=== PATIENT | male | born 1930 | race Caucasian/White ===

== ENCOUNTER 2016-07-26 12:49 | Inpatient (IN) | payer OTHER, MEDICARE ==
[~2016-07-26] VITALS: Ht 177.8 cm; Wt 67.9 kg
[2016-07-27] MEDS ORDERED: PANT40TA3 PO (10:19)
[2016-07-27] MEDS ORDERED: TYLE325T PO (10:19)
[2016-07-27] MEDS ORDERED: LOVA40TA PO (10:19)
[2016-07-27] MEDS ORDERED: VITA400C2 PO (10:19)
[2016-07-27] MEDS ORDERED: ENAL10TA7 PO (10:19)
[2016-07-27] MEDS ORDERED: LANTUS2P SQ (10:19)
[2016-07-27] MEDS ORDERED: VITA1000 PO (10:19)
[2016-07-27] MEDS ORDERED: ASCO500C PO (10:19)
[2016-07-31] MEDS ORDERED: ceFAZolin 2 GM PREMIX 50 ML IV SCH (05:45)
[2016-07-31] MEDS ORDERED: CHLORHEXIDINE GLUCONATE 4% SOLN 120 ML BTL TOP SCH (05:45)
[2016-07-31] MEDS ORDERED: POVIDONE IODINE 7.5% SCRUB 118 ML BOTTLE TOP SCH (05:45)
[2016-07-31] MEDS ORDERED: VANCOMYCIN 1000 MG/NS 250 ML (for <70 kg) IV SCH ×2 (05:45)
[2016-07-31 05:50] VITALS: BP 169/69; PULSE 63; RESP 20; TEMP 98; O2SAT 100
[2016-07-31] MEDS ORDERED: LACTATED RINGER'S 1000 ML IV SCH (06:00)
[2016-07-31] MEDS ORDERED: INSULIN HUMAN REGULAR 1,000 UNITS/10 ML VIAL SQ PRN (06:00)
[2016-07-31] MEDS ORDERED: METOPROLOL TARTRATE 25 MG TAB PO PRN (06:00)
[2016-07-31] MEDS ORDERED: SODIUM CHLORID 0.9% 500 ML IV SCH (06:00)
[2016-07-31] MEDS ORDERED: GENTAMICIN SULFATE 80 MG/2 ML VIAL ONE (06:09)
[2016-07-31] MEDS ORDERED: MIDAZOLAM HCL 2 MG/2 ML VIAL ONE ×2 (06:52→09:20)
[2016-07-31] MEDS ORDERED: FAMOTIDINE 20 MG/2 ML VIAL ONE (06:53)
[2016-07-31] MEDS ORDERED: TRANEXAMIC PERI-ARTICULAR 3,000 MG/NS 100 ML P-ARTICULR SCH ×2 (07:00)
[2016-07-31] MEDS ORDERED: EXPAREL PERI-ARTICULAR INJECTION (TOTAL VOL. 60 ML) P-ARTICULR SCH ×2 (07:00)
[2016-07-31] MEDS ORDERED: TRANEXAMIC ACID IV SCH (07:00)
[2016-07-31] MEDS ORDERED: SODIUM CHLORIDE 0.9% IV SCH (07:00)
[2016-07-31] MEDS ORDERED: HYDR-3288 PO (07:18)
[2016-07-31] MEDS ORDERED: ENOX40P SQ (07:19)
[2016-07-31] MEDS ORDERED: MORPHINE SULFATE 4 MG/ML INJ IV PUSH PRN (07:30)
[2016-07-31] MEDS ORDERED: NALOXONE HCL 0.4 MG/ML AMP IV PRN (07:30)
[2016-07-31] MEDS ORDERED: Post-op Orders (for Pharmacy) MISC XX ONE (07:30)
[2016-07-31] MEDS ORDERED: ZOLPIDEM TARTRATE 5 MG TAB PO PRN (07:30)
[2016-07-31] MEDS ORDERED: MAGNESIUM HYDROXIDE SUSP 30 ML CUP PO PRN (07:30)
[2016-07-31] MEDS ORDERED: SODIUM CHLORIDE 0.9% FLUSH 5 ML FLUSH IVF PRN (07:30)
[2016-07-31] MEDS ORDERED: ALUMINUM/MAGNESIUM/SIMETH 30 ML CUP PO PRN (07:30)
[2016-07-31] MEDS ORDERED: ACETAMINOPHEN/HYDROcodone 325 MG/10 MG TAB PO PRN (07:30)
[2016-07-31] MEDS ORDERED: BISACODYL 10 MG SUPP PR PRN (07:30)
[2016-07-31] MEDS ORDERED: ONDANSETRON HCL 4 MG/2 ML VIAL IVP PRN (07:30)
[2016-07-31] MEDS ORDERED: diphenhydrAMINE HCL 50 MG/ML VIAL IV PRN (07:30)
[2016-07-31] MEDS: SODIUM CHLORIDE 0.9% FLUSH 5 ML FLUSH IVF SCH ×2 (09:00→22:00)
[2016-07-31] MEDS ORDERED: ENALAPRIL HYDROCHLOROTHIAZIDE PO SCH (09:00)
[2016-07-31] MEDS ORDERED: DO NOT ADM ANY ANTICOAGULANT DRUGS XX PRN (09:15)
--- NOTE | 2016-07-31 09:22 | RADRPT ---
EXAM DATE/TIME: 07/31/2016 07:29 [facility] COMPARISON: No previous studies available for comparison. INDICATIONS : Open reduction internal fixation of the right hip. MEDICAL HISTORY : None. SURGICAL HISTORY : None. ENCOUNTER: Initial ACUITY: 1 day PAIN SCORE: Non-responsive. LOCATION: Right Hip. FINDINGS: The patient is status post a total hip arthroplasty with a bipolar prosthesis. Prosthesis is [place]. Alignment is anatomic. A fracture is not appreciated. CONCLUSION: Anatomic alignment. Albert Saini MD FACR Board Certified Radiologist. This report was verified electronically.
--- NOTE | 2016-07-31 09:45 | MP ---
cc: PARESH JEROME M.D. 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 PROCEDURE Right total hip arthroplasty. SURGEON Dr. Paresh Jerome SCALE AND SKIP CAR OPERATOR Reuben Iraheta PA-C ANESTHESIA General. REVIEW OF SYSTEMS 200 cc. COMPLICATIONS None. IMPLANTS USED DePuy Corail size 14 Press-Fit high offset femoral stem, size 56 solid [place] Gription, cup size 36-mm neutral highly cross-linked polyethylene liner, size 36-mm ceramic head, +5 neck. JUSTIFICATION This patient is an 86-year-old male history of right hip progressive pain. He has been followed by us at the [facility]. He has severe pain with standing, walking, ambulation with weightbearing activities. It interferes with activities of daily living. He has failed nonoperative treatment modalities including medications, therapy, ambulatory assistive aids, injections, home exercise program. The patient is not overweight. X-rays of the right hip reveal severe end-stage osteoarthritis with near [id number] joint space narrowing, subchondral sclerosis, subchondral cysts, osteophyte formation and associated subluxation. 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 The patient was counseled as to the risks, benefits and alternatives to a total hip arthroplasty. The risks were discussed which include but are not limited to anesthesia, bleeding, infection, damage to nerves, blood vessels, pain, stiffness, fracture dislocation, leg length discrepancies, blood clots, pulmonary embolism and even . The patient's pain was severe. He favored the benefits over the risks and did wish to proceed with surgery. PROCEDURE IN DETAIL Written consent was obtained. The patient was identified, taken to the operating room, placed supine on the operating room table. General anesthesia was administered as well as 2 grams of IV Ancef and 1 gram of IV vancomycin. The patient left and right feet were placed in the padded traction boots on the [place] table. The right hip and right lower extremity were prepped and draped using isopropyl alcohol, Hibiclens solution and Chloraprep solution. After an appropriate time-out was performed, a longitudinal incision was made over the anterolateral aspect of the right hip. The fascial layer was incised. Dissection was carried over tensor fascia kevyn, underneath the rectus femoris to allow exposure to the anterior hip capsule. A capsulotomy incision was performed. An oscillating saw was used to perform a femoral neck cut. The femoral head and neck component was removed; this was passed off the table and sent to Pathology. A 10-blade scalpel was used to excise the labrum. Sequential reaming of the acetabulum began at size 51, was carried through to size 56. Subsequently, a solid [place]reekside size 45 Gription cup was impacted in approximately 45 degrees of abduction and 10 degrees of anteversion. There was good purchase and fixation. After insertion of the cup, a screw hole eliminator was placed, followed by the neutral liner. The liner was impacted in place and tested for stability. Attention was then turned to the femur where the leg was externally rotated, extended to the ground and adducted. The capsule was released off the inner surface of the greater trochanter to allow for elevation and lateralization of the femur. A box-cutting osteotome was used to gain entrance into the intramedullary canal of the femur. This was followed by canal finder and sequential broaching up to size 14. Trial head and neck combinations were evaluated and the final components implanted in place with the size 14, high offset femoral stem, 36 ceramic head, +5 neck. The leg could achieve full extension of 80 degrees and extension all the way down to the ground without evidence of anterior instability or impingement. Clinically and upon fluoroscopic imaging, the components appeared appropriately aligned. The surgical wound was thoroughly irrigated with sterile saline pulse lavage and antibiotic-impregnated solution. The capsule was closed with #2 FiberWire suture. The fascial layer was closed with #1 Vicryl suture, the subcutaneous layer with 2-0 Vicryl suture. The skin was closed with Dermabond. Sterile dressings were applied. The patient tolerated the procedure well with no intraoperative complications noted. Reuben Iraheta, physician temporary administrative assistant certified, was present during the entire procedure to include patient positioning and the procedure itself. The medical necessity of a physician temporary administrative assistant was indicated in this case due to the complexity of the procedure itself. He assisted with appropriate manipulation of the leg and also retraction of muscle, tendon, bone and neurovascular structures. He assisted also with preparation of bone and also implantation of the prosthetic replacement. MD PRICILLA Gupta/RENNY /8:53 AM /9:04 AM
[2016-07-31] MEDS ORDERED: *morphine SULFATE 8 MG/ML PERIprocedure ONLY ONE (09:54)
[2016-07-31] MEDS: SODIUM CHLOR 0.9% 1000 ML INJ 1,000 ML IV SCH ×2 (10:00→18:00)
--- NOTE | 2016-07-31 10:27 | RADRPT ---
EXAM DATE/TIME: 07/31/2016 09:30 [facility] COMPARISON: No previous studies available for comparison. INDICATIONS: Post right hip surgery MEDICAL HISTORY: None. SURGICAL HISTORY: None. ENCOUNTER: Initial ACUITY: 1 day PAIN SCORE: 0/10 LOCATION: Right hip FINDINGS: The patient is status post right hip replacement with prosthesis is good position. There is no acute fracture or dislocation. Mild degenerative changes are noted involving the left hip joint. Mild de generative changes and scoliosis of the lumbar spine are noted. CONCLUSION: 1. Mild degenerative changes involving the left hip joint. 2. Mild degenerative changes and scoliosis of the lower lumbar spine. 3. Status post right hip replacement with prosthesis is good position. Yunior Griffin MD on July 31, 2016 at 10:19 Board Certified Radiologist. This report was verified electronically.
[2016-07-31] MEDS ORDERED: PROPOFOL 200 MG/20 ML AMP IV ONE (12:00)
[2016-07-31] MEDS ORDERED: LACTATED RINGER'S 1000 ML INJ 1,000 ML IV ONE (12:00)
[2016-07-31] MEDS ORDERED: ONDANSETRON HCL 4 MG/2 ML VIAL IV PUSH ONE (12:00)
[2016-07-31] MEDS ORDERED: PHENYLEPH/NS 1000 MCG/10 ML SYR IV ONE (12:00)
[2016-07-31] MEDS ORDERED: ePHEDrine/NS 50 MG/5 ML SYR IV ONE (12:00)
[2016-07-31] MEDS: PANTOPRAZOLE SOD 40 MG DELAYED RELEASE TAB PO SCH (14:00)
[2016-07-31] MEDS: CHOLECALCIFEROL (VIT D3) 1000 UNIT TAB PO SCH (14:00)
[2016-07-31] MEDS: ENALAPRIL MALEATE 10 MG TAB PO SCH (14:00)
[2016-07-31] MEDS: ASCORBIC ACID 500 MG TAB PO SCH (14:00)
[2016-07-31] MEDS: HYDROCHLOROTHIAZIDE 25 MG TAB PO SCH (14:00)
[2016-07-31] MEDS: VITAMIN E 400 UNIT CAP PO SCH (14:00)
--- NOTE | 2016-07-31 16:14 | PD.CONS ---
HPI Service [facility] Hospitalists Consult Requested By Dr. 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 The patient reports that he has been having progressive pain in the right hip. He failed conservative measures and therefore was admitted to the hospital for hip replacement. Hospitalist service was consulted for medical management. Regarding his diabetes. He reports that has been controlled with Lantus 12 units daily at bedtime. His blood pressure has been controlled with enalapril and hydrochlorothiazide. He denies episodes of chest pain or shortness of breath. Patient is seen in PACU. He is currently comfortable. Pain is controlled. Review of Systems Other Constitutional: DENIES: Fever, Chills Endocrine: DENIES: Polyuria Eyes: DENIES: Blurred vision Ears, nose, mouth, throat: DENIES: Oral lesions Respiratory: DENIES: Cough, Shortness of breath Cardiovascular: DENIES: Chest pain Gastrointestinal: DENIES: Nausea, Vomiting Genitourinary: DENIES: Dysuria Musculoskeletal: COMPLAINS OF: Joint pain Integumentary: DENIES: Rash Neurologic: DENIES: Headache Psychiatric: DENIES: Mood changes Past Family Social History Allergies: Coded Allergies: No Known Allergies (Unverified , 07/31/16) Past Medical History Hypertension Pancreatic mass status post Whipple Diabetes Hyperlipidemia Peptic ulcer disease Past Surgical History Right hip replacement 07/31/16 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 Appendectomy Reported Medications Reported Meds & Active Scripts Active Lovenox Inj (Enoxaparin Sodium) 40 Mg/0.4 Ml Syr 40 Mg SQ DAILY [place] (Hydrocodone-Acetaminophen) 7.5-325 mg Tab 1-2 Tab PO Q6H PRN Reported Vitamin C (Ascorbic Acid) 500 Mg Cap 500 Mg PO DAILY D 1000 (Cholecalciferol) 1,000 Unit Tab 1,000 Units PO DAILY Enalapril-Hydrochorothiazide (Enalapril-Hydrochlorothiazide) 10-25 Mg Tab 10-25 Mg PO DAILY Lantus Inj (Insulin Glargine) 1,000 Unit/10 Ml Vial 12 Units SQ HS Lovastatin 40 Mg Tab 40 Mg PO HS Pantoprazole (Pantoprazole Sodium) 40 Mg Tab 40 Mg PO DAILY Vitamin E 400 Unit Cap 400 Units PO DAILY Family History Father from complication of renal failure and strokes. Social History The patient denies using tobacco or alcohol. Physical Exam Vital Signs Vital Signs Date Time Temp Pulse Resp B/P Pulse Ox O2 Delivery O2 Flow Rate FiO2 07/31/16 13:50 15 07/31/16 10:30 97.5 67 15 130/62 95 Nasal Cannula 2 07/31/16 10:15 68 15 128/60 99 Nasal Cannula 3 07/31/16 10:00 68 14 126/58 98 Nasal Cannula 3 07/31/16 09:59 15 07/31/16 09:45 70 14 127/59 97 Nasal Cannula 3 07/31/16 09:30 71 13 129/62 94 Nasal Cannula 3 07/31/16 09:15 97.6 76 9 126/65 99 Simple Mask 8 07/31/16 05:50 98.0 63 20 169/69 100 Physical Exam GENERAL: Elderly male in no apparent distress. SKIN: No rashes, ecchymoses or lesions. Cool and dry. HEAD: Atraumatic. Normocephalic. No temporal or scalp tenderness. EYES: Pupils equal round and reactive. Extraocular motions intact. No scleral icterus. No injection or drainage. ENT: Nose without bleeding, purulent drainage or septal hematoma. Throat without erythema, tonsillar hypertrophy or exudate. Uvula midline. Airway patent. NECK: Trachea midline. No JVD or lymphadenopathy. Supple, nontender, no meningeal signs. CARDIOVASCULAR: Regular rate and rhythm without murmurs, gallops, or rubs. RESPIRATORY: Clear to auscultation. Breath sounds equal bilaterally. No wheezes , rales, or rhonchi. GASTROINTESTINAL: Abdomen soft, non-tender, nondistended. No hepato-splenomegaly , or palpable masses. No guarding. MUSCULOSKELETAL: Right hip postop. Dressing is clean and dry. Neurovascularly intact distally NEUROLOGICAL: Awake and alert. Cranial nerves II through XII intact. Motor and sensory grossly within normal limits. Five out of 5 muscle strength in all muscle groups. Normal speech. Laboratory Laboratory Tests Test 07/31/16 06:10 Blood Type B POSITIVE Antibody Screen NEGATIVE Imaging Last Impressions Hip and Pelvis X-Ray 07/31/16 0000 Signed Impressions: Service Date/Time: Sunday, July 31, 2016 09:30 - CONCLUSION: 1. Mild degenerative changes involving the left hip joint. 2. Mild degenerative changes and scoliosis of the lower lumbar spine. 3. Status post right hip replacement with prosthesis is good position. Yunior Griffin MD Hip X-Ray 07/31/16 0000 Signed Impressions: Service Date/Time: Sunday, July 31, 2016 07:29 - CONCLUSION: Anatomic alignment. Albert Saini MD Assessment and Plan Problem List: (1) Primary localized osteoarthrosis, pelvic region and thigh ICD Code: M16.10 Status: Acute (2) Hypertension ICD Code: I10 Status: Acute (3) Diabetes ICD Code: E11.9 Status: Acute Assessment and Plan 86-year-old male with: Right hip osteoarthritis and right hip cystic mass: Patient is status post right hip replacement. - Routine postop care per orthopedics. - Pain control. Bowel regimen - DVT prophylaxis per orthopedics. 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 Hypertension: Continue home medications Hyperlipidemia: Continue statin GERD: Continue PPI GI prophylaxis: PPI. Stool softener PRN constipation. DVT PPx: Lovenox to be started tomorrow per orthopedics. Randall Jessica MD Jul 31, 2016 16:14
[2016-07-31] MEDS ORDERED: DEXTROSE 50% IN WATER 50 ML VIAL(D50) IV PUSH PRN (16:15)
[2016-07-31] MEDS ORDERED: GLUCAGON 1 MG/ML VIAL OTHER PRN (16:15)
[2016-07-31 16:20] VITALS: BP 151/67; PULSE 78; RESP 18; TEMP 96.8; O2SAT 100
[2016-07-31] MEDS: ACETAMINOPHEN/HYDROcodone 325 MG/10 MG TAB PO PRN (17:06)
[2016-07-31 20:00] VITALS: BP 115/60; PULSE 75; RESP 18; TEMP 97.1; O2SAT 98
[2016-07-31] MEDS: INSULIN ASPART SUPPLEMENTAL SCALE SQ SCH (21:59)
[2016-07-31] MEDS: INSULIN DETEMIR 100 UNITS/ML VIAL SQ SCH (21:59)
[2016-08-01] VITALS (7 sets, daily range): BP systolic 112–146; BP diastolic 52–67; PULSE 72–84; RESP 16–18; TEMP 96.8–100.8; O2SAT 94–97
[2016-08-01] MEDS: SODIUM CHLOR 0.9% 1000 ML INJ 1,000 ML IV SCH (04:00)
[2016-08-01] MEDS: ACETAMINOPHEN/HYDROcodone 325 MG/10 MG TAB PO PRN ×3 (05:10→13:35)
[2016-08-01 06:09] LABS: MEAN CELL VOLUME 89.2 FL (80.0-100.0); MEAN CORPUSCULAR HEMOGLOBIN 29.4 PG (27.0-34.0); PLATELET COUNT 139 TH/MM3 (150-450); RED BLOOD COUNT 3.47 MIL/MM3 (4.50-5.90); RED CELL DISTRIBUTION WIDTH 14.4 % (11.6-17.2); REVIEW FLAG FINAL; WHITE BLOOD COUNT 8.8 TH/MM3 (4.0-11.0)
[2016-08-01 06:29] LABS: BICARBONATE 28.1 MEQ/L (21.0-32.0); POTASSIUM 4.4 MEQ/L (3.5-5.1)
[2016-08-01] MEDS: INSULIN ASPART SUPPLEMENTAL SCALE SQ SCH ×4 (06:40→23:18)
[2016-08-01] MEDS: PANTOPRAZOLE SOD 40 MG DELAYED RELEASE TAB PO SCH (08:44)
[2016-08-01] MEDS: VITAMIN E 400 UNIT CAP PO SCH (08:44)
[2016-08-01] MEDS: HYDROCHLOROTHIAZIDE 25 MG TAB PO SCH (08:44)
[2016-08-01] MEDS: ENOXAPARIN SODIUM 40 MG/0.4 ML SYRINGE SQ SCH (08:46)
[2016-08-01] MEDS: ENALAPRIL MALEATE 10 MG TAB PO SCH (08:46)
[2016-08-01] MEDS: ASCORBIC ACID 500 MG TAB PO SCH (08:47)
[2016-08-01] MEDS: CHOLECALCIFEROL (VIT D3) 1000 UNIT TAB PO SCH (08:47)
[2016-08-01] MEDS: SODIUM CHLORIDE 0.9% FLUSH 5 ML FLUSH IVF SCH ×2 (08:59→23:18)
--- NOTE | 2016-08-01 09:51 | PD.ORT.PN ---
Subjective Post Op Day #: 1 Subjective Remarks hip is sore Objective Vitals Vital Signs Date Time Temp Pulse Resp B/P Pulse Ox O2 Delivery O2 Flow Rate FiO2 08/01/16 09:42 97 21 08/01/16 08:00 96.8 84 18 126/61 96 08/01/16 04:00 99.2 78 16 120/52 97 08/01/16 00:00 98.0 72 17 112/56 97 07/31/16 20:00 97.1 75 18 115/60 98 07/31/16 16:20 96.8 78 18 151/67 100 07/31/16 15:45 97.6 75 16 138/65 95 Room Air 07/31/16 14:00 73 16 134/66 95 Room Air 07/31/16 13:50 15 07/31/16 13:00 72 16 136/65 94 Room Air 07/31/16 12:00 69 15 134/63 99 Nasal Cannula 2 07/31/16 11:00 68 15 135/64 98 Nasal Cannula 2 07/31/16 10:30 97.5 67 15 130/62 95 Nasal Cannula 2 07/31/16 10:15 68 15 128/60 99 Nasal Cannula 3 07/31/16 10:00 68 14 126/58 98 Nasal Cannula 3 07/31/16 09:59 15 I/O 07/31/16 07/31/16 07/31/16 08/01/16 08/01/16 08/01/16 07:00 15:00 23:00 07:00 15:00 23:00 Intake Total 1100 ml 1170 ml 250 ml Output Total 400 ml 900 ml 450 ml Balance 700 ml 270 ml -200 ml Intake Oral 720 ml 120 ml IV Total 450 ml 130 ml Other 1100 ml Output Urine Total 200 ml 900 ml 450 ml Estimated Blood Loss 200 ml # Bowel Movements 0 0 Result Diagram: 08/01/16 0541 08/01/16 0541 Objective Remarks in chair, nad dressing c/d/i neg homans nvi Assessment & Plan Ortho Post Op Day #: 1 Problem List: Assessment and Plan s/p R GURVINDER - anterior approach wbat daily dressing changes lovenox d/c planning home with [facility] and pt rx in chart f/up dr. garcia 2 weeks Joaquin Iraheta Aug 01, 2016 09:51
--- NOTE | 2016-08-01 09:52 | HHI.DCPOC ---
Discharge Care Plan Diagnosis: (1) Primary localized osteoarthrosis, pelvic region and thigh Your Health Problems Are: Difficulty with ADL Goals to Promote Your Health * To prevent worsening of your condition and complications * To maintain your health at the optimal level Directions to Meet Your Goals Take your medications as prescribed Follow your dietary instruction Follow activity as directed Keep your appointments as scheduled Take your immunizations and boosters as scheduled If your symptoms worsen call your PCP, if no PCP go to Urgent Care Center or Emergency Room Smoking is Dangerous to Your Health. Avoid second hand smoke Call the 24-hour hour crisis hotline for domestic abuse at Joaquin Iraheta Aug 01, 2016 09:52
--- NOTE | 2016-08-01 09:53 | HHI.FF ---
Face to Face Verification Diagnosis: (1) Primary localized osteoarthrosis, pelvic region and thigh Physical Therapy Gait training, Safety evaluation, Transfer training, bed to chair Hip: Total hip, Protocol: Right Right LE Weight Bearing: WB as tolerated Nursing RN: 3 days/week x 2 weeks Nursing: Dressing changes Dressing Changes: Daily dressing change I have seen patient Matthew Logan on 08/01/16. My clinical findings support the need for the requested home health care services because: Limited ability to care for self High risk of falls I certify that my clinical findings support that this patient is homebound because: Post-op weakness Unsteady gait/balance Joaquin Iraheta Aug 01, 2016 09:53
[2016-08-01] MEDS ORDERED: MISC-163 (09:54)
[2016-08-01] MEDS ORDERED: WALKER WHEELS/F1 MIS (09:54)
--- NOTE | 2016-08-01 10:58 | HHI.PR ---
Subjective Remarks Patient seen in follow-up for postop hip replacement, diabetes, hypertension, hyperlipidemia. He reports that he is feeling well except for some pain at the surgical site on the right hip. Mostly controlled with the medications. No other complaints. Objective Vitals Vital Signs Date Time Temp Pulse Resp B/P Pulse Ox O2 Delivery O2 Flow Rate FiO2 08/01/16 09:42 97 21 08/01/16 08:00 96.8 84 18 126/61 96 08/01/16 04:00 99.2 78 16 120/52 97 08/01/16 00:00 98.0 72 17 112/56 97 07/31/16 20:00 97.1 75 18 115/60 98 07/31/16 16:20 96.8 78 18 151/67 100 07/31/16 15:45 97.6 75 16 138/65 95 Room Air 07/31/16 14:00 73 16 134/66 95 Room Air 07/31/16 13:50 15 07/31/16 13:00 72 16 136/65 94 Room Air 07/31/16 12:00 69 15 134/63 99 Nasal Cannula 2 07/31/16 11:00 68 15 135/64 98 Nasal Cannula 2 I/O 07/31/16 07/31/16 07/31/16 08/01/16 08/01/16 08/01/16 07:00 15:00 23:00 07:00 15:00 23:00 Intake Total 1100 ml 1170 ml 250 ml Output Total 400 ml 900 ml 450 ml Balance 700 ml 270 ml -200 ml Intake Oral 720 ml 120 ml IV Total 450 ml 130 ml Other 1100 ml Output Urine Total 200 ml 900 ml 450 ml Estimated Blood Loss 200 ml # Bowel Movements 0 0 Result Diagram: 08/01/16 0541 08/01/16 0541 Imaging Last Impressions Hip and Pelvis X-Ray 07/31/16 0000 Signed Impressions: Service Date/Time: Sunday, July 31, 2016 09:30 - CONCLUSION: 1. Mild degenerative changes involving the left hip joint. 2. Mild degenerative changes and scoliosis of the lower lumbar spine. 3. Status post right hip replacement with prosthesis is good position. Yunior Griffin MD Hip X-Ray 07/31/16 0000 Signed Impressions: Service Date/Time: Sunday, July 31, 2016 07:29 - CONCLUSION: Anatomic alignment. Albert Saini MD Objective Remarks GENERAL: This is a well-nourished, well-developed patient, in no apparent distress. CARDIOVASCULAR: Normal rate and regular rhythm without murmurs, gallops, or rubs. RESPIRATORY: Good respiratory efforts. Breath sounds equal and clear to auscultation bilaterally. GASTROINTESTINAL: Abdomen soft, non-tender, non-distended. Normal active bowel sounds MUSCULOSKELETAL: Postop right hip replacement. Postop dressing is clean and dry. Neurovascularly intact distally. NEURO: Alert & Oriented x4 to person, place, time, situation. Moves all ext x4 PSYCH: Appropriate mood and affect. A/P Problem List: (1) Primary localized osteoarthrosis, pelvic region and thigh ICD Code: M16.10 Status: Acute (2) Hypertension ICD Code: I10 Status: Acute (3) Diabetes ICD Code: E11.9 Status: Acute Assessment and Plan 86-year-old male with: Right hip osteoarthritis and right hip cystic mass: Patient is status post right hip replacement. POD #1 - Routine postop care per orthopedics. - Pain control. 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 Hypertension: Continue home medications Hyperlipidemia: Continue statin GERD: Continue PPI GI prophylaxis: PPI. Stool softener PRN constipation. DVT PPx: Randall Vargas MD Aug 01, 2016 10:57
[2016-08-01] MEDS: INSULIN DETEMIR 100 UNITS/ML VIAL SQ SCH (23:17)
[2016-08-01] MEDS: MULTIVITAMINS/MINERALS THERAPEUTIC TAB PO SCH (23:19)
[2016-08-01] MEDS: DOCUSATE SODIUM 100 MG CAP PO SCH (23:19)
[2016-08-02 00:50] VITALS: BP 103/51; PULSE 88; RESP 17; TEMP 99.6; O2SAT 94
[2016-08-02] MEDS: ACETAMINOPHEN/HYDROcodone 325 MG/10 MG TAB PO PRN ×3 (02:40→12:07)
[2016-08-02 03:30] VITALS: BP 107/53; PULSE 76; RESP 16; TEMP 98.4; O2SAT 94
[2016-08-02 06:28] LABS: HEMATOCRIT 30.3 % (39.0-51.0); MEAN CELL VOLUME 89.2 FL (80.0-100.0); MEAN CORPUSCULAR HEMOGLOBIN 29.6 PG (27.0-34.0); MEAN CORPUSCULAR HGB CONC 33.2 % (32.0-36.0); PLATELET COUNT 136 TH/MM3 (150-450); RED CELL DISTRIBUTION WIDTH 14.6 % (11.6-17.2); REVIEW FLAG FINAL; WHITE BLOOD COUNT 8.7 TH/MM3 (4.0-11.0)
[2016-08-02 06:50] LABS: POTASSIUM 5.3 MEQ/L (3.5-5.1)
[2016-08-02 07:11] LABS: CALCIUM-PROTEIN CORRECTED 7.8 MG/DL (8.5-10.1)
[2016-08-02 08:00] VITALS: BP 128/63; PULSE 73; RESP 18; TEMP 96.5; O2SAT 97
[2016-08-02] MEDS: VITAMIN E 400 UNIT CAP PO SCH (08:25)
[2016-08-02] MEDS: PANTOPRAZOLE SOD 40 MG DELAYED RELEASE TAB PO SCH (08:25)
[2016-08-02] MEDS: HYDROCHLOROTHIAZIDE 25 MG TAB PO SCH (08:25)
[2016-08-02] MEDS: CHOLECALCIFEROL (VIT D3) 1000 UNIT TAB PO SCH (08:25)
[2016-08-02] MEDS: ASCORBIC ACID 500 MG TAB PO SCH (08:25)
[2016-08-02] MEDS: ENALAPRIL MALEATE 10 MG TAB PO SCH (08:25)
[2016-08-02] MEDS: DOCUSATE SODIUM 100 MG CAP PO SCH (08:25)
[2016-08-02] MEDS: MULTIVITAMINS/MINERALS THERAPEUTIC TAB PO SCH (08:26)
[2016-08-02] MEDS: ENOXAPARIN SODIUM 40 MG/0.4 ML SYRINGE SQ SCH (08:26)
--- NOTE | 2016-08-02 08:57 | HHI.PR ---
Subjective Remarks Patient seen in follow-up for postop hip replacement, diabetes, hypertension, hyperlipidemia. Patient reports that he is feeling great. No new complaints. Pain is controlled. Objective Vitals Vital Signs Date Time Temp Pulse Resp B/P Pulse Ox O2 Delivery O2 Flow Rate FiO2 08/02/16 03:30 98.4 76 16 107/53 94 08/02/16 00:50 99.6 88 17 103/51 94 08/01/16 21:05 100.8 83 17 139/60 94 08/01/16 16:00 98.4 79 18 120/58 96 08/01/16 11:41 97.4 74 18 146/67 97 08/01/16 09:42 97 21 I/O 08/01/16 08/01/16 08/01/16 08/02/16 08/02/16 08/02/16 07:00 15:00 23:00 07:00 15:00 23:00 Intake Total 250 ml 600 ml 480 ml 720 ml Output Total 450 ml 350 ml Balance -200 ml 250 ml 480 ml 720 ml Intake Oral 120 ml 600 ml 480 ml 720 ml IV Total 130 ml Output Urine Total 450 ml 350 ml # Voids 1 1 # Bowel Movements 0 0 0 1 1 Result Diagram: 08/02/1651208/02/16512 Objective Remarks GENERAL: This is a well-nourished, well-developed patient, in no apparent distress. CARDIOVASCULAR: Normal rate and regular rhythm without murmurs, gallops, or rubs. RESPIRATORY: Good respiratory efforts. Breath sounds equal and clear to auscultation bilaterally. GASTROINTESTINAL: Abdomen soft, non-tender, non-distended. Normal active bowel sounds MUSCULOSKELETAL: Postop right hip replacement. Postop dressing is clean and dry. Neurovascularly intact distally. NEURO: Alert & Oriented x4 to person, place, time, situation. Moves all ext x4 PSYCH: Appropriate mood and affect. A/P Problem List: (1) Primary localized osteoarthrosis, pelvic region and thigh ICD Code: M16.10 Status: Acute (2) Hypertension ICD Code: I10 Status: Acute (3) Diabetes ICD Code: E11.9 Status: Acute Assessment and Plan 86-year-old male with: Right hip osteoarthritis and right hip cystic mass: Patient is status post right hip replacement. POD #2 - Routine postop care per orthopedics. - Pain control. 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 Renal insufficiency probably secondary to dehydration: Patient had normal renal function yesterday. He is advised to drink plenty of fluid and follow-up with his PCP. Hypertension: Continue home medications Hyperlipidemia: Continue statin GERD: Continue PPI GI prophylaxis: PPI. Stool softener PRN constipation. DVT PPx: Lovenox Discharge Planning Cleared for discharge today Randall Jessica MD Aug 02, 2016 08:57
--- NOTE | 2016-08-02 09:23 | PD.ORT.PN ---
Subjective Post Op Day #: 2 Subjective Remarks hip is feeling better and ready to go home. Objective Vitals Vital Signs Date Time Temp Pulse Resp B/P Pulse Ox O2 Delivery O2 Flow Rate FiO2 08/02/16 03:30 98.4 76 16 107/53 94 08/02/16 00:50 99.6 88 17 103/51 94 08/01/16 21:05 100.8 83 17 139/60 94 08/01/16 16:00 98.4 79 18 120/58 96 08/01/16 11:41 97.4 74 18 146/67 97 08/01/16 09:42 97 21 I/O 08/01/16 08/01/16 08/01/16 08/02/16 08/02/16 08/02/16 07:00 15:00 23:00 07:00 15:00 23:00 Intake Total 250 ml 600 ml 480 ml 720 ml Output Total 450 ml 350 ml Balance -200 ml 250 ml 480 ml 720 ml Intake Oral 120 ml 600 ml 480 ml 720 ml IV Total 130 ml Output Urine Total 450 ml 350 ml # Voids 1 1 # Bowel Movements 0 0 0 1 1 Result Diagram: 08/02/1651208/02/16512 Objective Remarks in bed, nad incision on erythema, no drainage neg homans nvi Assessment & Plan Ortho Post Op Day #: 2 Problem List: Assessment and Plan s/p R GURVINDER - anterior approach wbat daily dressing changes lovenox d/c planning home with [facility]hc and pt - cleared for d/c by ortho rx in chart f/up dr. garcia 2 weeks Joaquin Iraheta Aug 02, 2016 09:23
[2016-08-02 09:31] VITALS: RESP 20
--- NOTE | 2016-08-09 11:07 | MD ---
cc: PARESH JEROME ADMISSION DATE: 07/31/2016 DISCHARGE DATE: 08/02/2016 ADMISSION DIAGNOSES 1. Degenerative osteoarthritis right hip. 2. Cystic mass right hip femoral neck. DISCHARGE DIAGNOSES 1. Degenerative osteoarthritis right hip. 2. Cystic mass right hip femoral neck. HISTORY OF PRESENT ILLNESS Mr. Logan is an 86-year-old male who presented to the [facility] for evaluation regarding his progressive right hip pain. The patient states the pain has been progressive for greater than six months' duration. Currently he states it is a constant aching sensation aggravated by weightbearing activities. It is inhibiting his activities of daily living and his ability to exercise. The patient notes he has no alleviating factors at this point in time. In the past he has tried medications, physical therapy, home exercise program. The patient is not overweight. He does have x-ray evidence of severe end-stage osteoarthritis of the right hip as well as a cystic mass within the right femoral neck. 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 While in the office the patient was counseled on his diagnosis, treatment options. The risks, benefits and indications of all were discussed. The patient did elect to proceed with surgical intervention to include a right total hip arthroplasty. DATE OF SURGERY 07/31/2016. PROCEDURE PERFORMED Right total hip arthroplasty anterior approach. HOSPITAL COURSE After surgery the patient was admitted to [facility] where he received appropriate medical management, pain control, DVT prophylaxis as well as physical therapy. DISCHARGE Once being discharged from the hospital, the patient was cleared to go home where he received home health care and home physical therapy. He is in stable condition. He can weight-bear as tolerated with anterior hip precautions. He is to receive daily dressing changes and has been instructed on appropriate wound care management. The patient has been provided prescriptions for pain control as well as DVT prophylaxis medication. He has also been provided a follow-up appointment to see Dr. Paresh Jerome in the office in approximately two weeks from the date of surgery. The patient has asked appropriate questions which have been answered. The patient is cleared for discharge. Dictated by: Reuben Iraheta PA-C MD PRICILLA Gupta/RENNY /9:27 AM /11:01 AM
== END 2016-08-02 15:53 | disposition home health service (06) | DRG 470 ==
LOC: HSDI 07-31 05:22 → N06B 07-31 16:05
PROVIDERS: ADMIT Orthopaedic Surgery Sports Medicine; ATTEND Orthopaedic Surgery Sports Medicine
PROC: 0SR9049 Replacement of Right Hip Joint with Ceramic on Polyethylene Synthetic Substitute, Cemented, Open Approach (ICD-10-PCS; principal; 2016-07-31 07:04)
DX: M16.11 Unilateral primary osteoarthritis, right hip (principal); E86.0 Dehydration; E11.9 Type 2 diabetes mellitus without complications; I10 Essential (primary) hypertension; M85.68 Other cyst of bone, other site; E78.5 Hyperlipidemia, unspecified; N28.9 Disorder of kidney and ureter, unspecified; K21.9 Gastro-esophageal reflux disease without esophagitis; Z79.4 Long term (current) use of insulin; Z87.891 Personal history of nicotine dependence; Z90.411 Acquired partial absence of pancreas
CPT/HCPCS: 73502; 76000; 80048; 82948; 84155; 85027; 86850; 86900; 86901; 88304; 88311; 94150; C1776; C9290; J0690; J1580; J1650; J1815; J2250; J2270; J2370; J2405; J3010; J3370; J7030; J7050; J7120